=== PATIENT | female | born 1995 | race African-American/Black ===

== ENCOUNTER 2018-04-18 14:08 | Outpatient (CLI) | payer MEDICAID ==
[~2018-04-18] VITALS: Ht 165.1 cm; Wt 62.3 kg
[2018-04-18] MEDS ORDERED: PRENATAL MVI (14:29)
[2018-04-18 14:30] VITALS: BP 109/74; PULSE 99; TEMP 98.6
[2018-04-18 15:25] VITALS: BP 105/68; PULSE 116
== END 2018-04-18 15:50 | disposition home or self-care (01) ==
LOC: LDRO 14:08
DX: O62.9 Abnormality of forces of labor, unspecified (principal); Z3A.40 40 weeks gestation of pregnancy

== ENCOUNTER 2018-04-18 20:14 | Inpatient (IN) | payer MEDICAID ==
[~2018-04-18] VITALS: Ht 165.1 cm; Wt 62.3 kg
[2018-04-18] VITALS (11 sets, daily range): BP systolic 111–129; BP diastolic 68–80; PULSE 88–107; TEMP 98.4–99
[~2018-04-18 20:14] MED LIST: PRENATAL MVI
--- NOTE | 2018-04-18 20:20 | NUR ---
HERE WITH FOB FOR LABOR CHECK. WORSENING PAIN AND CLOSER PT STATES THAN EARLIER VISIT TODAY, SLIGHT NAUSEA 2109 IV START LAB DRAW AFTER ADMIT ORDERS FROM DR SINGH
--- NOTE | 2018-04-18 21:30 | NUR ---
2129- REPORT RECEIVED, CARE ASSUMED. PT SITTING UP IN BED. FLAT AFFECT. 2139- CONSENTS SIGNED, QUESTIONS ANSWERED. DISCUSSED PLAN OF CARE WITH PT. 2152- PT POSITIONED SITTING UP ON EDGE OF BED FOR EPIDURAL PLACEMENT. 2154- RUDI TUBE FITTER AT BEDSIDE FOR EPIDURAL. HE DISCUSSED RISKS AND BENEFITS AND ANSWERS QUESTIONS. 2200- EPIDURAL TEST DOSE. 2205- EPIDURAL COMPLETE. PT TOLERATED WELL. PT POSITIONED IN LEFT TILT. MONITORS ADJUSTED. PT DENIES FURTHER NEEDS AT THIS TIME.
[2018-04-18 21:52] LABS: BASO % 0.1 % (0.0-2.0); EOS # 0.1 (0.0-0.7); GRAN # 10.3 (1.4-6.5); GRAN % 75.8 % (42.2-75.2); LYMPH # 1.9 (1.2-3.4); LYMPH % 14.1 % (20.0-51.0); MEAN CELL VOLUME 76 fl (80.0-95.0); MEAN CORPUSCULAR HGB CONC 31 g/dl (33.0-37.0); MEAN PLATELET VOLUME 9.6 fl (7.4-10.4); MONO # 1.1 (0.1-0.6); MONO % 8.4 % (1.7-9.3); PLATELET COUNT 381 K/mm3 (130-400); RED BLOOD COUNT 4.09 M/mm3 (4.10-5.30); REDCELL DISTRIBUTION WIDTH-CV 15.9 % (11.5-14.5)
[2018-04-18 21:56] LABS: HEMATOCRIT 30.9 % (35.0-45.0); HEMOGLOBIN 9.5 g/dl (12.0-15.0); MEAN CORPUSCULAR HEMOGLOBIN 23 pg (26.0-32.0)
--- NOTE | 2018-04-18 22:26 | NUR ---
2226- DR RAMÍREZ TO BEDSIDE, INTRODUCES SELF, DISCUSSES PLAN OF CARE AND AROM. PT AGREEABLE TO AROM. 2227- AROM WITH THICK MECONIUM FLUID. SVE BY DR RAMÍREZ /-1.
--- NOTE | 2018-04-18 23:15 | NUR ---
2315- DR RAMÍREZ AT BEDSIDE, SVE UNCHANGED. PT COMFORTABLE WITH EPIDURAL. 2355- DR RAMÍREZ AT BEDSIDE, SVE UNCHANGED. DR RAMÍREZ DISCUSSES STARTING SOME PITOCIN TO INCREASE CONTRACTIONS. PT AGREEABLE WITH THIS. 0000- PITOCIN STARTED ORDERED. 0030- PITOCIN INCREASED TO 4MUNITS. PT STILL COMFORTABLE WITH EPIDURAL. 0043- DR RAMÍREZ TO BEDSIDE. SVE COMPLETE. DR RAMÍREZ DISCUSSES PUSHING AND PT AGREES. 0048- PT POSITIONED IN STIRRUPS FOR PUSHING. 0050- PT BEGINS COACHED PUSHING WITH CONTRACTIONS. DR RAMÍREZ AND NURSERY STAFF AT BEDSIDE. 0109- SPONTANEOUS VAGINAL DELIVERY OF VIABLE FEMALE, VIGOROUS, TO WARMER AND CARE OF NURSERY STAFF. CORD BLOOD AND CORD GASES OBTAINED FOR MECONIUM STAINING. 0111- SPONTANEOUS DELIVERY OF PLACENTA, EXAMINED BY DR RAMÍREZ. REPAIR IN PROGRESS. 0115- REPAIR COMPLETE. PT TOLERATED WELL. PERICARE COMPLETE, ICE PACK TO PERINEUM. FEET DOWN FROM FOOTPLATES AND RECOVERY STARTED.
[2018-04-19] VITALS (16 sets, daily range): BP systolic 98–120; BP diastolic 47–79; PULSE 83–131; TEMP 98.5–99.1
--- NOTE | 2018-04-19 03:45 | NUR ---
0345- IV TO SALINE LOCK, EPIDURAL CATHETER REMOVED WITH BLUE TIP INTACT. PT ASSISTED TO AMBULATE TO BATHROOM. UNABLE TO VOID AT THIS TIME. PT PERFORMS PERICARE. CLEAN PAD PANTIES AND GOWN PROVIDED. PT EDUCATED ON NORMAL LOCHIA AND QUESTIONS ANSWERED. 0400- PT AMBULATES WITH ASSISTANCE TO ROOM 207. BELONGINGS SENT WITH PT. PT ORIENTED TO ROOM AND CALL LIGHTS. PLAN OF CARE AND PAIN MANAGEMENT EXPLAINED AND QUESTIONS ANSWERED. PT DENIES FURTHER NEEDS AT THIS TIME.
[2018-04-20 08:15] VITALS: BP 97/50; PULSE 84; TEMP 98.3
--- NOTE | 2018-04-20 08:15 | NUR ---
Awakens for baby. States wants to keep baby in nursery a little longer. Baby taken back to nursery in open crib.
--- NOTE | 2018-04-20 10:49 | NUR ---
Rests in bed, alert. Ibuprofen 600mg, percocet 5/325 mg. p.o. given per reques and as ordered.
[2018-04-20] MEDS ORDERED: IBU600 MG PO (11:00)
--- NOTE | 2018-04-20 13:00 | NUR ---
Discharge instructions given, verbalizes understanding.
== END 2018-04-20 13:10 | disposition home or self-care (01) | DRG 807 ==
LOC: LDRO 20:14 → LDR 20:48 → OB 04-19 04:00
PROVIDERS: ADMIT Obstetrics & Gynecology
PROC: 10E0XZZ Delivery of Products of Conception, External Approach (ICD-10-PCS; principal; 2018-04-19)
PROC: 0HQ9XZZ Repair Perineum Skin, External Approach (ICD-10-PCS; 2018-04-19)
DX: O77.0 Labor and delivery complicated by meconium in amniotic fluid (principal); Z37.0 Single live birth; Z3A.40 40 weeks gestation of pregnancy; O70.0 First degree perineal laceration during delivery; O69.2XX0 Labor and delivery complicated by other cord entanglement, with compression, not applicable or unspecified; O99.02 Anemia complicating childbirth; D64.9 Anemia, unspecified; O76 Abnormality in fetal heart rate and rhythm complicating labor and delivery
CPT/HCPCS: J2590; J2795; J7120